=== PATIENT | female | born 1990 | race Caucasian/White ===

== ENCOUNTER 2018-12-30 09:45 | Inpatient (IN) | payer MEDICAID ==
[~2018-12-30] VITALS: Ht 162.6 cm; Wt 100.5 kg
--- NOTE | 2018-12-30 10:17 | NUR ---
PT TO ED FOR LUTZ X A FEW DAYS. PT REPORTS NECK AND BILATERAL FLANK PAIN. CONNECTED TO MONITORS. VSS. EDMD PRESENT FOR EXAM. ORDERS RECEIVED.
[2018-12-30] MEDS ORDERED: ACETAMINOPHEN 500 MG TABLET PO ONE (10:30)
[2018-12-30] MEDS ORDERED: SODIUM CHLORIDE FLUSH 10ML SYR IVF ONE (10:30)
[2018-12-30] MEDS ORDERED: SODIUM CHLORIDE 0.9% 1,000ML IVBOLUS ONE (10:30)
[2018-12-30] MEDS ORDERED: KETOROLAC 30 MG/1 ML IVPush ONE (10:30)
[2018-12-30] MEDS ORDERED: KETOROLAC 30 MG/1 ML ONE (10:37)
[2018-12-30] MEDS ORDERED: ACETAMINOPHEN 500 MG TABLET ONE (10:37)
[2018-12-30 11:17] LABS: RAPID INFLUENZA A Negative (Negative); RAPID INFLUENZA B Negative (Negative)
[2018-12-30 11:30] LABS: BASOPHILS # (AUTO) 0.03 x10^3/uL (0-0.1); BASOPHILS % (AUTO) 0 % (0-1); EOSINOPHILS # (AUTO) 0.05 x10^3/uL (0-0.4); EOSINOPHILS % (AUTO) 0 % (1-7); LYMPHOCYTES # (AUTO) 1.64 x10^3/uL (1-3.4); LYMPHOCYTES % (AUTO) 16 % (22-44); MD NO; MEAN CORPUSCULAR HGB CONC 31.8 g/dL (32.4-35.8); MEAN CORPUSCULAR VOLUME 81.7 fL (80-100); MEAN PLATELET VOLUME 8.2 fL (7.4-10.4); MONOCYTES # (AUTO) 0.41 x10^3/uL (0.2-0.8); MONOCYTES % (AUTO) 4 % (2-9); NEUTROPHILS # (AUTO) 8.45 x10^3/uL (1.8-6.8); NEUTROPHILS % (AUTO) 80 % (42-75); PLATELET COUNT 276 x10^3/uL (130-400); RED BLOOD COUNT 5.16 x10^6/uL (3.82-5.3); RED CELL DISTRIBUTION WIDTH 13.6 % (9.6-15.2)
--- NOTE | 2018-12-30 11:33 | NUR ---
pt resting in room. vss. no needs exressed. call light in reach. iv established and labs and bc x2 drawn. pt medicated per oct. ekg complete. cxr complete. ua collected via straight cath. awaiting results.
[2018-12-30 11:44] LABS: ALANINE AMINOTRANSFERASE 14 U/L (12-78); ALBUMIN 3.4 g/dL (3.4-5.0); ANION GAP 10 mmol/L (5-15); CALCIUM 8.6 mg/dL (8.5-10.1); CHLORIDE 105 mmol/L (98-107); CREATININE 0.74 mg/dL (0.55-1.02)
[2018-12-30 11:49] LABS: ALKALINE PHOSPHATASE 90 U/L (45-117); BILIRUBIN,TOTAL 0.4 mg/dL (0.2-1.0); TOTAL PROTEIN 7.5 g/dL (6.4-8.2)
[2018-12-30 11:54] LABS: CULTURE INDICATED? NO; MICROSCOPIC NOT IND
[2018-12-30] MEDS ORDERED: METOCLOPRAMIDE 5 MG/ML, 2ML IVPush ONE (12:00)
[2018-12-30] MEDS ORDERED: DIPHENHYDRAMINE 50 MG/ML, 1ML IVPush ONE (12:00)
[2018-12-30] MEDS ORDERED: DIPHENHYDRAMINE 50 MG/ML, 1ML ONE (12:01)
[2018-12-30] MEDS ORDERED: METOCLOPRAMIDE 5 MG/ML, 2ML ONE (12:01)
--- NOTE | 2018-12-30 12:03 | NUR ---
pt resting in roomw tih mother at bs. vss. pt reports burris and nausea. edmd notified. orders received. pt medicated per oct. new orders for ct head received. awaiting imaging.
[2018-12-30] MEDS ORDERED: MORPHINE SULFATE 4 MG/ML, 1ML ONE ×3 (12:33→14:35)
[2018-12-30] MEDS: MORPHINE SULFATE 4 MG/ML, 1ML IVPush PRN ×3 (12:35→14:43)
[2018-12-30] MEDS ORDERED: LIDOCAINE-MPF 1%, 5ML ONE (12:45)
--- NOTE | 2018-12-30 13:58 | NUR ---
PT RESTING IN ROOM WITH MOTHER AT BS. VSS. PT REPORT LUTZ HAS RETURNED. PT MEDICATED PER OCT. N OOTHER NEEDS. AWAITING CT RESULTS AND LP.
--- NOTE | 2018-12-30 14:04 | NUR ---
all results back at this time. chart up for recheck.
--- NOTE | 2018-12-30 14:46 | NUR ---
TASK RN: LP SET UP COMPLETE. CONSENT FOR PROCEDURE SIGNED BY PT. ERP AT BEDSIDE FOR PROCEDURE. PT MEDICATED PER EMAR FOR CONTINUED PAIN. SPO2/BP MONITORING IN PLACE.
[2018-12-30] MEDS ORDERED: MORPHINE SULFATE 4 MG/ML, 1ML IVPush PRN (15:00)
[2018-12-30 15:27] LABS: GLUCOSE, CSF 58 mg/dL (40-80); TOTAL PROTEIN,CSF 31 mg/dL (15-45)
[2018-12-30] MEDS ORDERED: HYDROmorphone 2 MG/ML, 1ML ONE (15:52)
[2018-12-30] MEDS ORDERED: HYDROmorphone 2 MG/ML, 1ML IV PRN (16:00)
[2018-12-30 17:07] VITALS: BP 98/44
[2018-12-30] MEDS ORDERED: PHARMACOKINETIC MONITORING MC PRN (18:30)
[2018-12-30] MEDS ORDERED: POTASSIUM CHLORIDE 20 MEQ TAB.ER.PRT PO ONE (18:30)
[2018-12-30] MEDS ORDERED: VANCOMYCIN PMX 1GM/200ML 200 ML IV ONE (18:30)
[2018-12-30] MEDS ORDERED: PHARMACOKINETIC CONSULTATION MC ONE (18:30)
[2018-12-30] MEDS ORDERED: PROMETHAZINE 25 MG/ML, 1ML IM PRN (18:30)
[2018-12-30] MEDS ORDERED: POLYETHYLENE GLYCOL 17 GM PACKET PO PRN (18:30)
[2018-12-30] MEDS ORDERED: KETOROLAC 30 MG/1 ML IV PRN (18:30)
[2018-12-30] MEDS ORDERED: BISACODYL 10 MG SUPP PR PRN (18:30)
[2018-12-30] MEDS ORDERED: HEPARIN 5,000 UNITS/ML, 1ML SQ SCH (18:30)
[2018-12-30] MEDS ORDERED: hydrALAzine 20 MG/ML, 1ML IVPush PRN (18:30)
[2018-12-30] MEDS ORDERED: VANCOMYCIN PER PHARMACY MC PRN (18:30)
[2018-12-30 18:46] LABS: THYROID STIMULATING HORMONE 0.281 mIU/L (0.358-3.740)
[2018-12-30] MEDS ORDERED: VANCOMYCIN 1,800 MG in SODIUM CHLORIDE 0.9% 250 ML IV SCH (19:00)
[2018-12-30 19:19] LABS: HEMOGLOBIN A1C 5.5 % (4.2-6.3)
[2018-12-30 20:13] VITALS: BP 113/75
[2018-12-30] MEDS: ACETAMINOPHEN 325 MG TABLET PO PRN (20:29)
[2018-12-30] MEDS: ONDANSETRON 2MG/ML, 2ML IVPush PRN (20:32)
[2018-12-30] MEDS: morphine SULFATE 10 MG/ML, 1ML IVPush PRN (20:32)
[2018-12-30] MEDS: SODIUM CHLORIDE 0.9% 1,000 ML IV SCH (20:36)
[2018-12-30] MEDS: CEFTRIAXONE PMX 2GM/50ML 50 ML IV SCH (20:40)
[2018-12-30] MEDS: ACYCLOVIR 400 MG in SODIUM CHLORIDE 0.9% 100 ML IV SCH (23:50)
[2018-12-30 23:57] VITALS: BP 89/60
[2018-12-31] VITALS (9 sets, daily range): BP systolic 74–105; BP diastolic 52–70
[2018-12-31] MEDS: VANCOMYCIN 1,800 MG in SODIUM CHLORIDE 0.9% 250 ML IV SCH ×2 (02:02→13:49)
[2018-12-31] MEDS ORDERED: SODIUM CHLORIDE 0.9% 1,000ML IVBOLUS ONE (04:00)
[2018-12-31] MEDS ORDERED: DIPHENHYDRAMINE 50 MG/ML, 1ML IVPush ONE (04:00)
[2018-12-31] MEDS: ACETAMINOPHEN 325 MG TABLET PO PRN ×3 (04:37→19:38)
[2018-12-31] MEDS: OXYcodone IR 5MG TABLET PO PRN (04:37)
[2018-12-31] MEDS: SODIUM CHLORIDE 0.9% 1,000 ML IV SCH (05:00)
[2018-12-31 05:47] LABS: BASOPHILS # (AUTO) 0.03 x10^3/uL (0-0.1); BASOPHILS % (AUTO) 0 % (0-1); EOSINOPHILS % (AUTO) 1 % (1-7); LYMPHOCYTES # (AUTO) 2.38 x10^3/uL (1-3.4); LYMPHOCYTES % (AUTO) 30 % (22-44); MD NO; MEAN CORPUSCULAR HEMOGLOBIN 26.2 pg (27.0-34.8); MEAN CORPUSCULAR VOLUME 81.9 fL (80-100); MEAN PLATELET VOLUME 7.8 fL (7.4-10.4); MONOCYTES # (AUTO) 0.32 x10^3/uL (0.2-0.8); MONOCYTES % (AUTO) 4 % (2-9); NEUTROPHILS # (AUTO) 5.24 x10^3/uL (1.8-6.8); NEUTROPHILS % (AUTO) 65 % (42-75); PLATELET COUNT 232 x10^3/uL (130-400); RED BLOOD COUNT 4.49 x10^6/uL (3.82-5.3); RED CELL DISTRIBUTION WIDTH 13.6 % (9.6-15.2)
[2018-12-31 05:49] LABS: CALCIUM 7.8 mg/dL (8.5-10.1); CHLORIDE 110 mmol/L (98-107)
[2018-12-31 05:54] LABS: ALANINE AMINOTRANSFERASE 12 U/L (12-78); ALBUMIN 2.6 g/dL (3.4-5.0); ALKALINE PHOSPHATASE 68 U/L (45-117); ANION GAP 6 mmol/L (5-15); BILIRUBIN,TOTAL 0.4 mg/dL (0.2-1.0); CHOL/HDL RATIO 2.4; CHOLESTEROL, TOTAL 200 mg/dL (140-239); CREATININE 0.57 mg/dL (0.55-1.02); HDL CHOL % 42 % (28-40); HDL CHOLESTEROL (DIRECT) 84 mg/dL (40-60); LDL CHOLESTEROL,CALCULATED 98 mg/dL (54-169); LDL/HDL RATIO 1.2 (0.5-3.0); TOTAL PROTEIN 6.1 g/dL (6.4-8.2); TRIGLYCERIDES 89 mg/dL (50-200); VLDL CHOLESTEROL 18 mg/dL (0-25)
[2018-12-31] MEDS: ACYCLOVIR 400 MG in SODIUM CHLORIDE 0.9% 100 ML IV SCH ×2 (08:41→17:19)
[2018-12-31] MEDS: morphine SULFATE 10 MG/ML, 1ML IVPush PRN ×5 (08:41→23:45)
[2018-12-31] MEDS: ONDANSETRON 2MG/ML, 2ML IVPush PRN (08:43)
[2018-12-31] MEDS: DIPHENHYDRAMINE 25 MG CAPSULE PO PRN ×3 (10:04→23:45)
[2018-12-31 12:52] LABS: TROPONIN I < 0.015 ng/mL (0.000-0.045)
[2018-12-31] MEDS: CEFTRIAXONE PMX 2GM/50ML 50 ML IV SCH (22:44)
[2019-01-01] MEDS: ACYCLOVIR 400 MG in SODIUM CHLORIDE 0.9% 100 ML IV SCH ×3 (00:54→19:11)
[2019-01-01] MEDS: DOCUSATE 100 MG CAPSULE PO PRN ×2 (00:56→19:10)
[2019-01-01] MEDS: VANCOMYCIN 1,800 MG in SODIUM CHLORIDE 0.9% 250 ML IV SCH ×2 (02:09→14:54)
[2019-01-01 02:19] VITALS: BP 96/58
[2019-01-01 04:24] VITALS: BP 96/65
[2019-01-01] MEDS: morphine SULFATE 10 MG/ML, 1ML IVPush PRN ×5 (04:42→21:52)
[2019-01-01] MEDS ORDERED: SODIUM CHLORIDE 0.9% 1,000ML IVBOLUS ONE (06:00)
[2019-01-01 06:06] LABS: MEAN CORPUSCULAR HEMOGLOBIN 26.6 pg (27.0-34.8); MEAN CORPUSCULAR HGB CONC 32.3 g/dL (32.4-35.8); MEAN CORPUSCULAR VOLUME 82.2 fL (80-100); MEAN PLATELET VOLUME 7.7 fL (7.4-10.4); PLATELET COUNT 233 x10^3/uL (130-400); RED BLOOD COUNT 4.17 x10^6/uL (3.82-5.3); RED CELL DISTRIBUTION WIDTH 13.8 % (9.6-15.2)
[2019-01-01 06:15] LABS: ANION GAP 6 mmol/L (5-15); CALCIUM 8.1 mg/dL (8.5-10.1); CHLORIDE 107 mmol/L (98-107)
[2019-01-01 06:17] LABS: CREATININE 0.67 mg/dL (0.55-1.02)
[2019-01-01 06:37] LABS: BASOPHILS # (AUTO) 0.02 x10^3/uL (0-0.1); BASOPHILS % (AUTO) 0 % (0-1); EOSINOPHILS # (AUTO) 0.12 x10^3/uL (0-0.4); EOSINOPHILS % (AUTO) 2 % (1-7); LYMPHOCYTES # (AUTO) 2.43 x10^3/uL (1-3.4); LYMPHOCYTES % (AUTO) 45 % (22-44); MD SCAN; MONOCYTES # (AUTO) 0.33 x10^3/uL (0.2-0.8); MONOCYTES % (AUTO) 6 % (2-9); NEUTROPHILS # (AUTO) 2.56 x10^3/uL (1.8-6.8); NEUTROPHILS % (AUTO) 47 % (42-75)
[2019-01-01 07:08] VITALS: BP 100/69
[2019-01-01] MEDS: ACETAMINOPHEN 325 MG TABLET PO PRN (08:30)
[2019-01-01 13:21] VITALS: BP 106/70
[2019-01-01] MEDS: DIPHENHYDRAMINE 25 MG CAPSULE PO PRN ×2 (14:26→21:52)
[2019-01-01] MEDS: OXYcodone IR 5MG TABLET PO PRN ×3 (14:54→23:24)
[2019-01-01] MEDS: ONDANSETRON ODT 4 MG PO PRN (14:54)
[2019-01-01] MEDS ORDERED: GADOBUTROL 10 MMOL/10 ML PFS ONE (16:34)
[2019-01-01 20:27] VITALS: BP 95/64
[2019-01-01] MEDS: ONDANSETRON 2MG/ML, 2ML IVPush PRN (21:53)
[2019-01-01] MEDS: CEFTRIAXONE PMX 2GM/50ML 50 ML IV SCH (22:46)
[2019-01-02] MEDS: morphine SULFATE 10 MG/ML, 1ML IVPush PRN ×3 (01:33→14:59)
[2019-01-02] MEDS: ACETAMINOPHEN 325 MG TABLET PO PRN ×3 (01:37→12:47)
[2019-01-02] MEDS: ACYCLOVIR 400 MG in SODIUM CHLORIDE 0.9% 100 ML IV SCH ×3 (01:56→18:00)
[2019-01-02] MEDS: ONDANSETRON ODT 4 MG PO PRN (01:56)
[2019-01-02 03:19] VITALS: BP 102/65
[2019-01-02 07:26] VITALS: BP 94/60
[2019-01-02] MEDS: OXYcodone IR 5MG TABLET PO PRN ×2 (08:18→12:47)
[2019-01-02] MEDS: VANCOMYCIN 1,800 MG in SODIUM CHLORIDE 0.9% 250 ML IV SCH ×2 (08:18→20:00)
[2019-01-02] MEDS: DIPHENHYDRAMINE 25 MG CAPSULE PO PRN (08:18)
[2019-01-02] MEDS: DOCUSATE 100 MG CAPSULE PO PRN (10:17)
[2019-01-02 12:51] VITALS: BP 101/65
[2019-01-02] MEDS ORDERED: GABA100C PO (15:59)
[2019-01-02] MEDS ORDERED: IBUP-1221 PO (15:59)
[2019-01-02 18:54] VITALS: BP 95/63
[2019-01-02] MEDS: CEFTRIAXONE PMX 2GM/50ML 50 ML IV SCH (22:30)
[2019-01-03] MEDS: ACYCLOVIR 400 MG in SODIUM CHLORIDE 0.9% 100 ML IV SCH (02:00)
== END 2019-01-03 07:27 | disposition home or self-care (01) | DRG 872 ==
LOC: ED 11:04 → EDIP 15:17 → 3NE 16:06
PROVIDERS: ADMIT Hospitalist; ATTEND Hospitalist
PROC: 009U3ZZ Drainage of Spinal Canal, Percutaneous Approach (ICD-10-PCS; principal; 2018-12-30)
DX: A41.89 Other specified sepsis (principal); A87.9 Viral meningitis, unspecified; R51 Headache; M51.26 Other intervertebral disc displacement, lumbar region; Z82.49 Family history of ischemic heart disease and other diseases of the circulatory system; Z83.3 Family history of diabetes mellitus; Z90.89 Acquired absence of other organs; Z91.040 Latex allergy status
CPT/HCPCS: 36415; 62270; 70450; 71045; 72158; 80048; 80053; 80061; 80202; 81003; 82945; 83036; 83605; 83735; 84100; 84145; 84157; 84439; 84443; 84484; 84703; 85025; 87040; 87070; 87081; 87205; 87252; 87400; 89051; 93005; 96361; 96374; 96375; 96376; A9585; G0378; J0133; J0696; J1170; J1885; J2405; J3370; Q0162; J1200; J2270; J2765; J7030; J7050; Q0163

== ENCOUNTER 2019-01-08 09:11 | Emergency (ER) | payer MEDICAID ==
[~2019-01-08] VITALS: Ht 162.6 cm; Wt 97.6 kg
[~2019-01-08 09:11] MED LIST: GABA100C PO; IBUP-1221 PO
[2019-01-08 09:16] VITALS: BP 108/72
== END 2019-01-08 10:44 | disposition home or self-care (01) ==
LOC: ED 10:34
DX: L50.9 Urticaria, unspecified (principal)
CPT/HCPCS: 99283; J7512

== ENCOUNTER 2020-04-01 18:29 | Emergency (ER) | payer MEDICAID, OTHER ==
[~2020-04-01] VITALS: Ht 162.6 cm; Wt 119.2 kg
--- NOTE | 2020-04-01 19:32 | NUR ---
[employer] OPERATOR: PT AMBULATORY TO ROOM AT THIS TIME WITH STEADY GAIT FROM LOBBY.
[2020-04-01] MEDS ORDERED: DIPHENHYDRAMINE 50 MG CAPSULE PO STA (19:47)
[2020-04-01] MEDS ORDERED: DIPHENHYDRAMINE 25 MG CAPSULE PO STA (19:47)
[2020-04-01] MEDS ORDERED: SODIUM CHLORIDE 0.9% 1,000ML IVBOLUS ONE (20:00)
[2020-04-01] MEDS ORDERED: PROCHLORPERAZINE 5 MG/ML, 2ML IVPush ONE (20:00)
[2020-04-01] MEDS ORDERED: SODIUM CHLORIDE FLUSH 10ML SYR IVF ONE (20:00)
[2020-04-01] MEDS ORDERED: KETOROLAC 30 MG/1 ML IVPush ONE (20:00)
[2020-04-01 20:29] LABS: BASOPHILS # (AUTO) 0.03 x10^3/uL (0-0.1); BASOPHILS % (AUTO) 0 % (0-1); EOSINOPHILS # (AUTO) 0.07 x10^3/uL (0-0.4); EOSINOPHILS % (AUTO) 1 % (1-7); LYMPHOCYTES # (AUTO) 2.58 x10^3/uL (1-3.4); LYMPHOCYTES % (AUTO) 28 % (22-44); MD NO; MEAN CORPUSCULAR HEMOGLOBIN 26.6 pg (27.0-34.8); MEAN CORPUSCULAR HGB CONC 32.5 g/dL (32.4-35.8); MEAN CORPUSCULAR VOLUME 81.9 fL (80-100); MEAN PLATELET VOLUME 7.8 fL (7.4-10.4); MONOCYTES # (AUTO) 0.44 x10^3/uL (0.2-0.8); MONOCYTES % (AUTO) 5 % (2-9); NEUTROPHILS # (AUTO) 6.08 x10^3/uL (1.8-6.8); NEUTROPHILS % (AUTO) 66 % (42-75); PLATELET COUNT 316 x10^3/uL (130-400); RED BLOOD COUNT 5.15 x10^6/uL (3.82-5.3)
[2020-04-01 20:37] LABS: ALBUMIN 3.7 g/dL (3.4-5.0); ANION GAP 7 mmol/L (5-15); CALCIUM 9.1 mg/dL (8.5-10.1); CHLORIDE 108 mmol/L (98-107)
[2020-04-01 20:43] LABS: ALANINE AMINOTRANSFERASE 17 U/L (12-78); ALKALINE PHOSPHATASE 71 U/L (45-117); BILIRUBIN,TOTAL 0.5 mg/dL (0.2-1.0); CREATININE 0.75 mg/dL (0.55-1.02); TOTAL PROTEIN 8.2 g/dL (6.4-8.2)
[2020-04-01 21:41] VITALS: BP 138/77
== END 2020-04-01 21:49 | disposition home or self-care (01) ==
LOC: ED 21:30
DX: R10.84 Generalized abdominal pain (principal); R11.2 Nausea with vomiting, unspecified; R19.7 Diarrhea, unspecified; R51 Headache
CPT/HCPCS: 36415; 80053; 83690; 84703; 85025; 96361; 96374; 96375; 99284; J0780; J1885; J7030; Q0163

== ENCOUNTER 2020-04-01 19:27 | Emergency (ER) | payer MEDICAID ==
[2020-04-01] MEDS ORDERED: PROCHLORPERAZINE 5 MG/ML, 2ML ONE (19:50)
[2020-04-01] MEDS ORDERED: KETOROLAC 30 MG/1 ML ONE (19:50)
[2020-04-01] MEDS ORDERED: DIPHENHYDRAMINE 25 MG CAPSULE ONE (19:50)
== END 2020-04-01 19:31 ==
LOC: ED 19:30
DX: K52.9 Noninfective gastroenteritis and colitis, unspecified (principal); R10.30 Lower abdominal pain, unspecified; R11.2 Nausea with vomiting, unspecified; R51 Headache
CPT/HCPCS: 99283

== ENCOUNTER 2020-12-31 16:00 | Emergency (ER) | payer MEDICAID, OTHER ==
[~2020-12-31] VITALS: Ht 162.6 cm; Wt 120.2 kg
--- NOTE | 2020-12-31 16:14 | NUR ---
EKG IN TRIAGE
[2020-12-31] MEDS ORDERED: OXYC-380 PO (16:29)
[2020-12-31] MEDS ORDERED: CYCL10TA2 PO (16:29)
[2020-12-31] MEDS ORDERED: KETOROLAC 30 MG/1 ML IM ONE (17:30)
[2020-12-31] MEDS ORDERED: OXYcodone/APAP 5/325MG TABLET PO ONE (17:30)
[2020-12-31] MEDS ORDERED: KETOROLAC 30 MG/1 ML ONE (17:57)
[2020-12-31] MEDS ORDERED: OXYcodone/APAP 5/325MG TABLET ONE (17:57)
[2020-12-31 18:51] VITALS: BP 115/60
== END 2020-12-31 19:07 | disposition home or self-care (01) ==
LOC: ED 16:42
DX: M54.12 Radiculopathy, cervical region (principal); R94.31 Abnormal electrocardiogram [ECG] [EKG]; Z91.040 Latex allergy status; Z88.1 Allergy status to other antibiotic agents
CPT/HCPCS: 72125; 93005; 96372; 99284; J1885